=== PATIENT | male | born 1985 | race Caucasian/White ===

== ENCOUNTER 2017-06-30 07:25 | Emergency (ER) | END 2017-06-30 10:28 | disposition home or self-care (01) ==

== ENCOUNTER 2017-11-21 10:26 | Emergency (ER) | END 2017-11-21 19:00 | disposition home or self-care (01) ==

== ENCOUNTER 2017-11-26 00:53 | Emergency (ER) | END 2017-11-26 03:15 | disposition home or self-care (01) ==

== ENCOUNTER 2018-03-21 08:43 | Emergency (ER) | END 2018-03-21 13:54 | disposition home or self-care (01) ==